=== PATIENT | female | born 1965 | race Caucasian/White ===

== ENCOUNTER 2016-12-26 13:17 | Emergency (ER) | payer MEDICARE ==
[2016-12-26] MEDS ORDERED: THERMAZENE 50 GRAM TP ONE (18:02)
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
[2016-12-26 18:54] VITALS: BP 132/68
== END 2016-12-26 18:53 | disposition home or self-care (01) ==
LOC: ED 13:17
DX: T20.27XA Burn of second degree of neck, initial encounter (principal); X19.XXXA Contact with other heat and hot substances, initial encounter; Y93.89 Activity, other specified; Y99.8 Other external cause status; Y92.89 Other specified places as the place of occurrence of the external cause

== ENCOUNTER 2020-07-02 08:08 | Outpatient (CLI) | payer MEDICARE ==
[2020-07-02] MEDS ORDERED: LIDOCAINE (4%) 40 MG/ML TOPICAL SOLN 50 ML BOTTLE TP ONE (08:26)
== END 2020-07-02 08:09 | disposition home or self-care (01) ==
LOC: EDBD 08:08 → WOUND 08:08
PROVIDERS: ATTEND Surgery
DX: L97.512 Non-pressure chronic ulcer of other part of right foot with fat layer exposed (principal); L84 Corns and callosities; M20.41 Other hammer toe(s) (acquired), right foot; I10 Essential (primary) hypertension; E78.5 Hyperlipidemia, unspecified; Z90.710 Acquired absence of both cervix and uterus
CPT/HCPCS: 11042; G0463; 99204; 99214